=== PATIENT | male | born 2000 | race Caucasian/White ===

== ENCOUNTER 2023-01-14 10:34 | Inpatient (IN) | payer BC, OTHER ==
[~2023-01-14 10:34] MED LIST: Iopamidol-370 76% 500 ML MDV (1 ML CHARGE) ONE
[2023-01-14] MEDS ORDERED: fentaNYL 50 mcg/mL 1 mL Vial ONE (10:39)
[2023-01-14] MEDS ORDERED: Propofol 1,000 MG/100 ML VIAL IV ONE ×2 (10:40→14:20)
[2023-01-14 10:53] LABS: Actual Bicarbonate (HCO3a) 19.9 mEq/L (22-28); Analyzer IN Cardio ER; Base Excess (BEa) -6.2 mEq/L (-2.0 to +3.0); CO2 Tension 41.9 mmHg (35.0-45.0); Calcium, Ionized (arterial) 1.05 mmol/L (1.12-1.30); Carboxyhemoglobin (COHb) 0.5 gm% (0.0-3.0); Hematocrit-ABG 35 % (42.0-52.0); pH, Arterial 7.295 (7.35-7.45)
[2023-01-14 10:56] LABS: Hematocrit 42.2 % (42.0-52.0); Mean Corpuscular HGB CONC 33.2 g/dL (32.0-36.0); Mean Corpuscular Hemoglobin 31.3 pg (27.0-31.0); Mean Corpuscular Volume 94.2 fl (78.0-98.0); Platelet Count 106 10x3/uL (130-400); Red Blood Cell (RBC) Count 4.48 mill/uL (4.70-6.10); White Blood Cell (WBC) Count 0.6 10x3/uL (4.8-10.8)
[2023-01-14 10:56] LABS: O2 Tension (PaO2), arterial 53.4 mmHg (80.0-100.0); Potassium - ABG Lab 2.55 mmol/L (3.70-5.30)
[2023-01-14 11:23] LABS: Manual Diff?? YES
[2023-01-14 11:24] LABS: ALT (SGPT) 20 U/L (8-55); AST (SGOT) 29 U/L (5-34); Alkaline Phosphatase 71 U/L (40-110); Anion Gap 15 mmol/L (10-20); BUN (Urea Nitrogen) 22 mg/dL (8.9-20.6); Bilirubin, Total 0.2 mg/dL (0.2-1.2); Calc. Creatinine Clearance 0 mL/min (70-130); Calcium 8.2 mg/dL (7.8-10.44); Carbon Dioxide 20 mmol/L (22-29); Chloride 109 mmol/L (98-107); Estimated GFR 132; Globulin 1.9 g/dL (2.4-3.5); Glucose 78 mg/dL (70-105); Potassium 3.4 mmol/L (3.5-5.1); Protein, Total 5.9 g/dL (6.0-8.3); Sodium 141 mmol/L (136-145)
[2023-01-14 11:26] LABS: Bilirubin Negative (Negative); Blood, Urine Negative (Negative); CAUTI Indications for Culture Dysuria,urgency,freq; Clarity Turbid (Clear); Glucose, Urine (Dipstick) 70 mg/dL (Negative); Ketone, Urine Negative (Negative); Leukocyte Negative Leu/uL (Negative); Nitrite Negative (Negative); Protein, Urine (Dipstick) 70 mg/dL (Neg-Trace); RBC/HPF None Seen HPF (0-3); Specific Gravity, Urine 1.013 (1.002-1.036); Squamous Epithelial None Seen HPF (0-3); Urobilinogen Normal mg/dL (Less than 2); pH, Urine 5.5 (5.0-9.0)
[2023-01-14 11:28] LABS: Bacteria/HPF 1+ HPF (None Seen); Urine Culture Reflex No No
[2023-01-14 11:30] LABS: Delete Auto Diff?? YES
[2023-01-14 11:32] LABS: INR-International Normal Ratio 1.4; Prothrombin Time 18.1 sec (12.0-14.7)
[2023-01-14 11:33] LABS: PTT 28.3 sec (22.9-36.1)
[2023-01-14 11:56] LABS: Band 12 % (5-11); Lymphocytes 48 % (21-51); Monocytes 4 % (0-10); Neutrophil 32 % (42-75); Platelet Adequacy Comment Appears Decreased; Polychromasia SLIGHT = 2-3 cells (100X) (0-2/hpf); Reactive Lymphocytes 4 % (0-10)
[2023-01-14] MEDS ORDERED: Cefepime 1 GM VIAL ONE (12:26)
[2023-01-14] MEDS ORDERED: Vancomycin 1 GM/200 ML (FROZEN) BAG ONE (12:26)
[2023-01-14 13:03] LABS: Hemoglobin 13.8 g/dL (14.0-18.0); Mean Corpuscular HGB CONC 33.7 g/dL (32.0-36.0); Mean Corpuscular Hemoglobin 31.3 pg (27.0-31.0); Mean Platelet Volume 10.7 fL (7.4-10.4); Platelet Count 97 10x3/uL (130-400); Red Blood Cell (RBC) Count 4.41 mill/uL (4.70-6.10); White Blood Cell (WBC) Count 0.3 10x3/uL (4.8-10.8)
[2023-01-14 13:12] LABS: Delete Auto Diff?? YES; Manual Diff?? YES
[2023-01-14 13:22] LABS: Actual Bicarbonate (HCO3a) 19.8 mEq/L (22-28); Analyzer IN Cardio ER; Base Excess (BEa) -6.7 mEq/L (-2.0 to +3.0); CO2 Tension 43.3 mmHg (35.0-45.0); Calcium, Ionized (arterial) 1.15 mmol/L (1.12-1.30); Hematocrit-ABG 39 % (42.0-52.0); Hemoglobin (Hb) 13.4 g/dL (14.0-18.0); O2 Tension (PaO2), arterial 169.1 mmHg (80.0-100.0); Potassium - ABG Lab 3.57 mmol/L (3.70-5.30); pH, Arterial 7.279 (7.35-7.45)
[2023-01-14 13:39] LABS: Band 21 % (5-11); CellaVision Operator ID LAB.KB; Large Platelets 12.3 % (0-5); Lymphocytes 58 % (21-51); Monocytes 7 % (0-10); Neutrophil 12 % (42-75); Ovalocytes SLIGHT = 2-5 cells HPF (0-1); Platelet Adequacy Comment Platelets Decreased; Polychromasia SLIGHT = 2-3 cells HPF (0-2); Reactive Lymphocytes 2 % (0-10); Smudge Cells 8.8 %; Total Cell Count 57
[2023-01-14] MEDS ORDERED: Acetaminophen 325 MG/10.15 ML UDCUP PO PRN (14:15)
[2023-01-14] MEDS ORDERED: Acetaminophen 650 MG Suppository PR PRN ×2 (14:15→14:17)
[2023-01-14] MEDS ORDERED: Electrolyte Replacement Protocol 1 EACH IVPB SCH (14:15)
[2023-01-14] MEDS ORDERED: Piperacillin/Tazobactam 3.375 GM in Sodium Chloride 0.9% 100 ML IVPB SCH ×4 (14:15→23:59)
[2023-01-14] MEDS ORDERED: Electrolyte Replacement Protocol 1 EACH IVPB ONE (14:17)
[2023-01-14] MEDS ORDERED: Ondansetron ODT 4 MG TAB PO PRN (14:20)
[2023-01-14] MEDS ORDERED: Ondansetron PF 4 MG/2 ML Vial IVP PRN (14:20)
[2023-01-14] MEDS ORDERED: Propofol 1,000 MG/100 ML VIAL IV PRN (14:30)
[2023-01-14] MEDS ORDERED: Fentanyl BOLUS 250 ML IVPB PRN (14:30)
[2023-01-14] MEDS ORDERED: Morphine 2 MG/ML VIAL SLOW IVP PRN (14:30)
[2023-01-14] MEDS ORDERED: Propofol BOLUS 1,000 MG/100 ML VIAL IV PRN (14:30)
[2023-01-14] MEDS ORDERED: DISCONTINUE PREVIOUS NARCOTIC PAIN MEDICATIONS AND BENZODIAZEPINES FS SCH (14:30)
[2023-01-14] MEDS ORDERED: Ventilator Sedation Protocol 1 EACH FS SCH (14:30)
[2023-01-14] MEDS ORDERED: FLU VACC QS2023-24(6MOS UP)/PF 60 MCG/0.5 ML SYRINGE IM ONE (15:45)
[2023-01-14 16:39] LABS: Lactic Acid 3.6 mmol/L (0.5-2.2)
[2023-01-14 16:50] LABS: Magnesium 1.9 mg/dL (1.6-2.6)
[2023-01-14 16:57] LABS: Troponin I 0.327 ng/mL (< 0.028)
[2023-01-14] MEDS ORDERED: Sodium Chloride 0.9% 1,000 ML IV SCH (17:00)
[2023-01-14] MEDS: D5 LR w/20 mEq KCL 1,000 ML IV SCH (17:06)
[2023-01-14] MEDS: Ipratropium/Albuterol 3 ML NEB NEB SCH ×2 (18:24→23:40)
[2023-01-14] MEDS ORDERED: Magnesium 2 GM/50 ML(in water) 2 GM in Premix 1 BAG IVPB SCH (19:15)
[2023-01-14] MEDS ORDERED: Vancomycin HCl 750 MG in Sodium Chloride 0.9% 250 ML 250 ML IVPB SCH (20:00)
[2023-01-14] MEDS ORDERED: Sodium Chloride 0.9% 100 ML ONE (20:22)
[2023-01-14] MEDS: Lorazepam 2 MG/ML VIAL SLOW IVP PRN (20:24)
[2023-01-14] MEDS: Heparin 5,000 UNITS/ML VIAL SC SCH (20:24)
[2023-01-14] MEDS: Baclofen 10 MG TAB PER TUBE SCH (20:33)
[2023-01-14] MEDS: Divalproex Sodium 125 mg Sprinkle Capsule PER TUBE SCH (20:33)
[2023-01-14] MEDS: Famotidine/PF 20 mg/2ml Vial SLOW IVP SCH (20:34)
[2023-01-14] MEDS: methylPREDNISolone Sod Succ 40 MG VIAL IVP SCH (20:35)
[2023-01-14] MEDS: LEVOCARNITINE 1 GM/10 ML PER TUBE SCH (20:36)
[2023-01-14] MEDS ORDERED: Vancomycin 1 GM in Premix 1 BAG IVPB SCH (21:00)
[2023-01-14] MEDS ORDERED: Famotidine/PF 20 mg/2ml Vial SLOW IVP SCH (21:00)
[2023-01-14] MEDS: Vancomycin HCl 750 MG in Sodium Chloride 0.9% 250 ML 250 ML IVPB SCH (21:04)
[2023-01-14] MEDS ORDERED: Piperacillin/Tazobactam 3.375 GM VIAL ONE (23:39)
[2023-01-14] MEDS: Piperacillin/Tazobactam 3.375 GM in Sodium Chloride 0.9% 100 ML IVPB SCH (23:44)
[2023-01-15] MEDS: D5 LR w/20 mEq KCL 1,000 ML IV SCH ×3 (00:05→11:06)
[2023-01-15 04:00] LABS: Hematocrit 36.8 % (42.0-52.0); Hemoglobin 12.5 g/dL (14.0-18.0); Mean Corpuscular Hemoglobin 31.2 pg (27.0-31.0); Mean Corpuscular Volume 91.8 fl (78.0-98.0); Mean Platelet Volume 11.2 fL (7.4-10.4); RBC Distribution Width 13.2 % (11.5-14.5); Red Blood Cell (RBC) Count 4.01 mill/uL (4.70-6.10); White Blood Cell (WBC) Count 3.7 10x3/uL (4.8-10.8)
[2023-01-15 04:39] LABS: ALT (SGPT) 21 U/L (8-55); AST (SGOT) 27 U/L (5-34); Albumin 3.2 g/dL (3.5-5.0); Alkaline Phosphatase 43 U/L (40-110); Anion Gap 14 mmol/L (10-20); BUN (Urea Nitrogen) 11 mg/dL (8.9-20.6); Bilirubin, Total 0.4 mg/dL (0.2-1.2); Calc. Creatinine Clearance 126 mL/min (70-130); Calcium 7.9 mg/dL (7.8-10.44); Carbon Dioxide 17 mmol/L (22-29); Chloride 111 mmol/L (98-107); Estimated GFR 143; Globulin 1.7 g/dL (2.4-3.5); Glucose 173 mg/dL (70-105); Magnesium 2.4 mg/dL (1.6-2.6); Phosphorus 2.3 mg/dL (2.3-4.7); Potassium 3.2 mmol/L (3.5-5.1); Protein, Total 4.9 g/dL (6.0-8.3); Sodium 139 mmol/L (136-145)
[2023-01-15 05:07] LABS: Delete Auto Diff?? YES; Manual Diff?? YES; Platelet Count 87 10x3/uL (130-400)
[2023-01-15] MEDS: Vancomycin HCl 750 MG in Sodium Chloride 0.9% 250 ML 250 ML IVPB SCH ×2 (05:07→13:40)
[2023-01-15 06:34] LABS: Band 36 % (5-11); Burr Cells SLIGHT = 2-5 cells HPF (0-1); CellaVision Operator ID LAB.JMM; Large Platelets 3.4 % (0-5); Lymphocytes 20 % (21-51); Metamyelocyte 14 % (0-0); Monocytes 9 % (0-10); Myelocyte 6 % (0-0); Neutrophil 15 % (42-75); Platelet Adequacy Comment Platelets Decreased; Smudge Cells 12.5 %; Total Cell Count 88
[2023-01-15] MEDS: Ipratropium/Albuterol 3 ML NEB NEB SCH ×3 (06:34→19:21)
[2023-01-15 06:50] LABS: Actual Bicarbonate (HCO3a) 22.4 mEq/L (22-28); Base Excess (BEa) -0.1 mEq/L (-2.0 to +3.0); CO2 Tension 30.4 mmHg (35.0-45.0); Calcium, Ionized (arterial) 1.14 mmol/L (1.12-1.30); Carboxyhemoglobin (COHb) 0.5 gm% (0.0-3.0); Hematocrit-ABG 37 % (42.0-52.0); Hemoglobin (Hb) 12.6 g/dL (14.0-18.0); O2 Tension (PaO2), arterial 90.5 mmHg (80.0-100.0); Potassium - ABG Lab 3.46 mmol/L (3.70-5.30); pH, Arterial 7.486 (7.35-7.45)
[2023-01-15 06:54] LABS: Puncture Site RRA
[2023-01-15] MEDS: Piperacillin/Tazobactam 3.375 GM in Sodium Chloride 0.9% 100 ML IVPB SCH ×2 (07:52→15:23)
[2023-01-15] MEDS: Potassium Chloride 20 MEQ in Premix 1 BAG IVPB SCH ×2 (07:52→10:04)
[2023-01-15] MEDS: Famotidine/PF 20 mg/2ml Vial SLOW IVP SCH ×2 (08:10→20:50)
[2023-01-15] MEDS: methylPREDNISolone Sod Succ 40 MG VIAL IVP SCH ×2 (08:10→20:50)
[2023-01-15] MEDS: Baclofen 10 MG TAB PER TUBE SCH ×2 (08:11→20:50)
[2023-01-15] MEDS: Divalproex Sodium 125 mg Sprinkle Capsule PER TUBE SCH ×2 (08:19→21:02)
[2023-01-15] MEDS: LEVOCARNITINE 1 GM/10 ML PER TUBE SCH ×2 (08:19→20:51)
[2023-01-15] MEDS: Heparin 5,000 UNITS/ML VIAL SC SCH (10:06)
[2023-01-15] MEDS ORDERED: Dexmedetomidine 400 MCG, Admixture Fee 1 EACH in Sodium Chloride 0.9% 96 ML IVPB SCH (12:00)
[2023-01-15] MEDS ORDERED: Sodium Chloride 0.9% 1,000 ML IV SCH ×2 (13:15→14:30)
[2023-01-15 13:42] LABS: Vancomycin, Trough 7.6 ug/mL
[2023-01-15] MEDS: Albumin 25% 25 GM/100 ML BOT IVPB SCH ×2 (14:29→20:49)
[2023-01-15] MEDS: Sodium Chloride 0.45% 1,000 ML IV SCH ×2 (14:53→23:18)
[2023-01-15] MEDS ORDERED: NOREPINEPHRINE 8 MG/250 ML-D5W 250 ML ONE (15:07)
[2023-01-15] MEDS ORDERED: NOREPINEPHRINE 8 MG/250 ML-D5W 250 ML IVPB SCH (15:15)
[2023-01-15] MEDS: Fentanyl CADD 100 ML IV SCH (16:36)
[2023-01-15] MEDS: Lorazepam 2 MG/ML VIAL SLOW IVP PRN (21:39)
[2023-01-15] MEDS: Vancomycin 1 GM in Premix 1 BAG IVPB SCH (22:03)
[2023-01-16] MEDS: Piperacillin/Tazobactam 3.375 GM in Sodium Chloride 0.9% 100 ML IVPB SCH ×4 (00:30→23:48)
[2023-01-16] MEDS: Lorazepam 2 MG/ML VIAL SLOW IVP PRN (01:49)
[2023-01-16] MEDS: Albumin 25% 25 GM/100 ML BOT IVPB SCH ×2 (01:53→08:28)
[2023-01-16] MEDS: Ipratropium/Albuterol 3 ML NEB NEB SCH ×4 (02:08→19:04)
[2023-01-16] MEDS: Sodium Chloride 0.45% 1,000 ML IV SCH ×5 (03:34→16:30)
[2023-01-16 04:19] LABS: Mean Corpuscular HGB CONC 33.8 g/dL (32.0-36.0); Mean Corpuscular Hemoglobin 31.5 pg (27.0-31.0); Mean Corpuscular Volume 93.2 fl (78.0-98.0); Mean Platelet Volume 11.5 fL (7.4-10.4); RBC Distribution Width 13.7 % (11.5-14.5); Red Blood Cell (RBC) Count 2.95 mill/uL (4.70-6.10); White Blood Cell (WBC) Count 4.6 10x3/uL (4.8-10.8)
[2023-01-16 04:35] LABS: Platelet Count 64 10x3/uL (130-400)
[2023-01-16 04:36] LABS: Delete Auto Diff?? YES; Manual Diff?? YES
[2023-01-16 04:38] LABS: Hematocrit 27.5 % (42.0-52.0); Hemoglobin 9.3 g/dL (14.0-18.0)
[2023-01-16 04:48] LABS: ALT (SGPT) 16 U/L (8-55); AST (SGOT) 19 U/L (5-34); Albumin 3.9 g/dL (3.5-5.0); Alkaline Phosphatase 26 U/L (40-110); Anion Gap 11 mmol/L (10-20); BUN (Urea Nitrogen) 8 mg/dL (8.9-20.6); Bilirubin, Total 0.4 mg/dL (0.2-1.2); Calc. Creatinine Clearance 140 mL/min (70-130); Calcium 7.9 mg/dL (7.8-10.44); Carbon Dioxide 19 mmol/L (22-29); Chloride 113 mmol/L (98-107); Estimated GFR 148; Globulin 1.3 g/dL (2.4-3.5); Glucose 144 mg/dL (70-105); Potassium 3.3 mmol/L (3.5-5.1); Protein, Total 5.2 g/dL (6.0-8.3); Sodium 140 mmol/L (136-145)
[2023-01-16 05:14] LABS: Band 42 % (5-11); CellaVision Operator ID lab.abc; Large Platelets 1.8 % (0-5); Lymphocytes 14 % (21-51); Metamyelocyte 3 % (0-0); Monocytes 5 % (0-10); Neutrophil 37 % (42-75); Platelet Adequacy Comment Platelets Decreased; RBC Morphology Within Normal Limits; Smudge Cells 6.4 %; Total Cell Count 109; Vacuoles SLIGHT
[2023-01-16] MEDS: Vancomycin 1 GM in Premix 1 BAG IVPB SCH ×3 (05:53→22:09)
[2023-01-16] MEDS: Potassium Chloride 20 MEQ in Premix 1 BAG IVPB SCH ×2 (08:28→10:31)
[2023-01-16] MEDS: LEVOCARNITINE 1 GM/10 ML PER TUBE SCH ×2 (08:29→20:42)
[2023-01-16] MEDS: Baclofen 10 MG TAB PER TUBE SCH ×2 (08:29→20:42)
[2023-01-16] MEDS: Famotidine/PF 20 mg/2ml Vial SLOW IVP SCH (08:29)
[2023-01-16] MEDS: Divalproex Sodium 125 mg Sprinkle Capsule PER TUBE SCH ×2 (08:29→20:41)
[2023-01-16] MEDS ORDERED: methylPREDNISolone Sod Succ 40 MG VIAL IVP SCH (08:45)
[2023-01-16] MEDS: methylPREDNISolone Sod Succ 40 MG VIAL IVP SCH ×2 (09:08→20:41)
[2023-01-17] MEDS: Ipratropium/Albuterol 3 ML NEB NEB SCH ×5 (01:06→23:45)
[2023-01-17] MEDS: Sodium Chloride 0.45% 1,000 ML IV SCH ×3 (03:44→21:27)
[2023-01-17 04:42] LABS: Hematocrit 31.9 % (42.0-52.0); Hemoglobin 10.6 g/dL (14.0-18.0); Mean Corpuscular HGB CONC 33.2 g/dL (32.0-36.0); Mean Corpuscular Hemoglobin 31.6 pg (27.0-31.0); Mean Corpuscular Volume 95.2 fl (78.0-98.0); Mean Platelet Volume 11.8 fL (7.4-10.4); RBC Distribution Width 13.9 % (11.5-14.5); Red Blood Cell (RBC) Count 3.35 mill/uL (4.70-6.10); White Blood Cell (WBC) Count 7.5 10x3/uL (4.8-10.8)
[2023-01-17 05:08] LABS: Delete Auto Diff?? YES; Manual Diff?? YES; Platelet Count 71 10x3/uL (130-400)
[2023-01-17 05:10] LABS: ALT (SGPT) 22 U/L (8-55); AST (SGOT) 32 U/L (5-34); Albumin 3.6 g/dL (3.5-5.0); Alkaline Phosphatase 39 U/L (40-110); Anion Gap 10 mmol/L (10-20); BUN (Urea Nitrogen) 12 mg/dL (8.9-20.6); Bilirubin, Total 0.4 mg/dL (0.2-1.2); Calc. Creatinine Clearance 119 mL/min (70-130); Calcium 8.3 mg/dL (7.8-10.44); Carbon Dioxide 20 mmol/L (22-29); Chloride 113 mmol/L (98-107); Estimated GFR 139; Globulin 1.4 g/dL (2.4-3.5); Glucose 120 mg/dL (70-105); Potassium 3.8 mmol/L (3.5-5.1); Sodium 139 mmol/L (136-145)
[2023-01-17] MEDS: Vancomycin 1 GM in Premix 1 BAG IVPB SCH ×3 (05:43→23:23)
[2023-01-17 06:05] LABS: Anisocytosis SLIGHT = 6-15 cells HPF (0-5); Band 42 % (5-11); CellaVision Operator ID LAB.JMM; Lymphocytes 4 % (21-51); Macrocytosis SLIGHT = 6-15 cells HPF (0-5); Metamyelocyte 3 % (0-0); Monocytes 3 % (0-10); Neutrophil 48 % (42-75); Platelet Adequacy Comment Platelets Decreased; Total Cell Count 102
[2023-01-17] MEDS ORDERED: Electrolyte Replacement Protocol FS PRN (09:00)
[2023-01-17] MEDS ORDERED: Furosemide 20 MG/2 ML VIAL SLOW IVP SCH (09:00)
[2023-01-17] MEDS ORDERED: Potassium Bicarbonate/Cit Ac 20 MEQ TAB PER TUBE SCH (09:00)
[2023-01-17] MEDS: Piperacillin/Tazobactam 3.375 GM in Sodium Chloride 0.9% 100 ML IVPB SCH ×3 (09:08→23:53)
[2023-01-17] MEDS: Divalproex Sodium 125 mg Sprinkle Capsule PER TUBE SCH ×2 (09:09→20:24)
[2023-01-17] MEDS: methylPREDNISolone Sod Succ 40 MG VIAL IVP SCH ×2 (09:10→20:24)
[2023-01-17] MEDS: Pantoprazole 40 MG VIAL IVP SCH (09:10)
[2023-01-17] MEDS: LEVOCARNITINE 1 GM/10 ML PER TUBE SCH ×2 (09:10→20:27)
[2023-01-17] MEDS: Baclofen 10 MG TAB PER TUBE SCH ×2 (09:12→20:24)
[2023-01-17] MEDS: Fentanyl CADD 100 ML IV SCH (16:45)
[2023-01-17] MEDS: Lorazepam 2 MG/ML VIAL SLOW IVP PRN (20:23)
[2023-01-17 22:15] LABS: Vancomycin, Trough 23.7 ug/mL
[2023-01-17] MEDS: Vancomycin HCl 750 MG in Sodium Chloride 0.9% 250 ML 250 ML IVPB SCH (23:53)
[2023-01-18 04:17] LABS: Hematocrit 34.5 % (42.0-52.0); Hemoglobin 11.2 g/dL (14.0-18.0); Mean Corpuscular HGB CONC 32.5 g/dL (32.0-36.0); Mean Corpuscular Hemoglobin 31.2 pg (27.0-31.0); Mean Corpuscular Volume 96.1 fl (78.0-98.0); Mean Platelet Volume 11.4 fL (7.4-10.4); Platelet Count 93 10x3/uL (130-400); RBC Distribution Width 14.1 % (11.5-14.5); Red Blood Cell (RBC) Count 3.59 mill/uL (4.70-6.10); White Blood Cell (WBC) Count 8.7 10x3/uL (4.8-10.8)
[2023-01-18 04:22] LABS: Delete Auto Diff?? YES; Manual Diff?? YES
[2023-01-18 04:39] LABS: Phosphorus 2.4 mg/dL (2.3-4.7)
[2023-01-18 04:40] LABS: ALT (SGPT) 25 U/L (8-55); AST (SGOT) 26 U/L (5-34); Albumin 3.6 g/dL (3.5-5.0); Alkaline Phosphatase 37 U/L (40-110); Anion Gap 11 mmol/L (10-20); BUN (Urea Nitrogen) 15 mg/dL (8.9-20.6); Bilirubin, Total 0.3 mg/dL (0.2-1.2); Calc. Creatinine Clearance 106 mL/min (70-130); Calcium 8.5 mg/dL (7.8-10.44); Carbon Dioxide 24 mmol/L (22-29); Chloride 108 mmol/L (98-107); Estimated GFR 132; Globulin 1.4 g/dL (2.4-3.5); Glucose 139 mg/dL (70-105); Potassium 3.4 mmol/L (3.5-5.1); Sodium 140 mmol/L (136-145)
[2023-01-18 04:47] LABS: Band 12 % (5-11); CellaVision Operator ID lab.sh2; Hypochromia SLIGHT = 6-15 cells HPF (0-5); Lymphocytes 5 % (21-51); Monocytes 7 % (0-10); Neutrophil 77 % (42-75); Platelet Adequacy Comment Platelets Decreased; Polychromasia SLIGHT = 2-3 cells HPF (0-2); Total Cell Count 102; Vacuoles SLIGHT
[2023-01-18] MEDS: Sodium Chloride 0.45% 1,000 ML IV SCH ×2 (05:42→15:36)
[2023-01-18 06:49] LABS: Actual Bicarbonate (HCO3a) 23.3 mEq/L (22-28); Base Excess (BEa) -1.7 mEq/L (-2.0 to +3.0); CO2 Tension 40.7 mmHg (35.0-45.0); Calcium, Ionized (arterial) 1.23 mmol/L (1.12-1.30); Carboxyhemoglobin (COHb) 0.5 gm% (0.0-3.0); Hematocrit-ABG 34 % (42.0-52.0); Hemoglobin (Hb) 11.4 g/dL (14.0-18.0); O2 Tension (PaO2), arterial 75.1 mmHg (80.0-100.0); pH, Arterial 7.376 (7.35-7.45)
[2023-01-18 07:10] LABS: ALV-art Gradient 87.925 mmHg (0-20); Puncture Site RRA
[2023-01-18] MEDS: Vancomycin HCl 750 MG in Sodium Chloride 0.9% 250 ML 250 ML IVPB SCH ×2 (07:31→15:36)
[2023-01-18] MEDS: Ipratropium/Albuterol 3 ML NEB NEB SCH ×3 (07:32→19:11)
[2023-01-18] MEDS ORDERED: Magnesium 2 GM/50 ML(in water) 2 GM in Premix 1 BAG IVPB SCH (08:00)
[2023-01-18] MEDS ORDERED: Potassium Bicarbonate/Cit Ac 20 MEQ TAB PER TUBE SCH (08:00)
[2023-01-18] MEDS: Piperacillin/Tazobactam 3.375 GM in Sodium Chloride 0.9% 100 ML IVPB SCH ×2 (08:17→15:36)
[2023-01-18] MEDS: Baclofen 10 MG TAB PER TUBE SCH ×2 (08:18→20:44)
[2023-01-18] MEDS: LEVOCARNITINE 1 GM/10 ML PER TUBE SCH ×2 (08:38→20:44)
[2023-01-18] MEDS: methylPREDNISolone Sod Succ 40 MG VIAL IVP SCH ×2 (08:38→20:45)
[2023-01-18] MEDS: Pantoprazole 40 MG VIAL IVP SCH (08:38)
[2023-01-18] MEDS: Divalproex Sodium 125 mg Sprinkle Capsule PER TUBE SCH ×2 (08:52→20:44)
[2023-01-18 23:18] LABS: Vancomycin, Trough 20.5 ug/mL
[2023-01-19] MEDS: Piperacillin/Tazobactam 3.375 GM in Sodium Chloride 0.9% 100 ML IVPB SCH ×4 (00:02→23:59)
[2023-01-19] MEDS: Vancomycin HCl 750 MG in Sodium Chloride 0.9% 250 ML 250 ML IVPB SCH (00:03)
[2023-01-19] MEDS: Ipratropium/Albuterol 3 ML NEB NEB SCH ×4 (00:43→18:25)
[2023-01-19 04:38] LABS: #Monocytes 0.7 thou/uL (0.11-0.59); #Neutrophils 4.7 thou/uL (1.40-6.50); %Basophils 0.2 % (0.0-1.0); %Eosinophils 0.2 % (0.0-10.0); %Neutrophils 77.6 % (42.0-75.0); Hematocrit 34.5 % (42.0-52.0); Hemoglobin 11.4 g/dL (14.0-18.0); Mean Corpuscular Hemoglobin 31.2 pg (27.0-31.0); Mean Corpuscular Volume 94.5 fl (78.0-98.0); Mean Platelet Volume 11.1 fL (7.4-10.4); Platelet Count 110 10x3/uL (130-400); RBC Distribution Width 14.1 % (11.5-14.5); Red Blood Cell (RBC) Count 3.65 mill/uL (4.70-6.10); White Blood Cell (WBC) Count 6.1 10x3/uL (4.8-10.8)
[2023-01-19 05:01] LABS: ALT (SGPT) 22 U/L (8-55); AST (SGOT) 22 U/L (5-34); Albumin 3.4 g/dL (3.5-5.0); Alkaline Phosphatase 36 U/L (40-110); Anion Gap 11 mmol/L (10-20); BUN (Urea Nitrogen) 16 mg/dL (8.9-20.6); Bilirubin, Total 0.3 mg/dL (0.2-1.2); Calc. Creatinine Clearance 108 mL/min (70-130); Calcium 8.4 mg/dL (7.8-10.44); Carbon Dioxide 25 mmol/L (22-29); Chloride 110 mmol/L (98-107); Estimated GFR 134; Globulin 1.5 g/dL (2.4-3.5); Glucose 94 mg/dL (70-105); Potassium 4.3 mmol/L (3.5-5.1); Protein, Total 4.9 g/dL (6.0-8.3); Sodium 142 mmol/L (136-145)
[2023-01-19] MEDS: Sodium Chloride 0.45% 1,000 ML IV SCH ×2 (06:21→09:25)
[2023-01-19] MEDS ORDERED: Vancomycin HCl 500 MG in Sodium Chloride 0.9% 100 ML IVPB SCH (08:00)
[2023-01-19] MEDS: Pantoprazole 40 MG VIAL IVP SCH (09:13)
[2023-01-19] MEDS: methylPREDNISolone Sod Succ 40 MG VIAL IVP SCH (09:13)
[2023-01-19] MEDS: Baclofen 10 MG TAB PER TUBE SCH ×2 (09:26→21:09)
[2023-01-19] MEDS: Divalproex Sodium 125 mg Sprinkle Capsule PER TUBE SCH ×2 (09:26→21:09)
[2023-01-19] MEDS: LEVOCARNITINE 1 GM/10 ML PER TUBE SCH ×2 (09:29→21:09)
[2023-01-19] MEDS ORDERED: Furosemide 20 MG/2 ML VIAL SLOW IVP SCH (10:00)
[2023-01-20] MEDS: Ipratropium/Albuterol 3 ML NEB NEB SCH ×4 (01:25→18:52)
[2023-01-20] MEDS: Piperacillin/Tazobactam 3.375 GM in Sodium Chloride 0.9% 100 ML IVPB SCH ×2 (10:50→16:48)
[2023-01-20] MEDS: Pantoprazole 40 MG VIAL IVP SCH (10:51)
[2023-01-20] MEDS: Divalproex Sodium 125 mg Sprinkle Capsule PER TUBE SCH ×2 (10:52→21:47)
[2023-01-20] MEDS: Baclofen 10 MG TAB PER TUBE SCH ×2 (10:52→21:47)
[2023-01-20] MEDS: LEVOCARNITINE 1 GM/10 ML PER TUBE SCH ×2 (10:53→21:47)
[2023-01-21] MEDS: Piperacillin/Tazobactam 3.375 GM in Sodium Chloride 0.9% 100 ML IVPB SCH ×4 (00:46→23:43)
[2023-01-21 06:32] LABS: #Basophils 0.1 thou/uL (0.0-0.2); #Eosinphils 0.1 thou/uL (0.0-0.7); #Monocytes 1.6 thou/uL (0.11-0.59); %Basophils 0.6 % (0.0-1.0); %Eosinophils 1.4 % (0.0-10.0); %Lymphocytes 17.2 % (21.0-51.0); %Monocytes 18.2 % (0.0-10.0); Hematocrit 31.6 % (42.0-52.0); Hemoglobin 10.7 g/dL (14.0-18.0); Mean Corpuscular HGB CONC 33.9 g/dL (32.0-36.0); Mean Corpuscular Hemoglobin 31.3 pg (27.0-31.0); Mean Corpuscular Volume 92.4 fl (78.0-98.0); Mean Platelet Volume 9.8 fL (7.4-10.4); Platelet Count 135 10x3/uL (130-400); Red Blood Cell (RBC) Count 3.42 mill/uL (4.70-6.10); White Blood Cell (WBC) Count 8.6 10x3/uL (4.8-10.8)
[2023-01-21 06:53] LABS: Anion Gap 11 mmol/L (10-20); BUN (Urea Nitrogen) 16 mg/dL (8.9-20.6); Calc. Creatinine Clearance 106 mL/min (70-130); Calcium 8.6 mg/dL (7.8-10.44); Carbon Dioxide 29 mmol/L (22-29); Chloride 109 mmol/L (98-107); Estimated GFR 129; Glucose 88 mg/dL (70-105); Potassium 3.5 mmol/L (3.5-5.1); Sodium 145 mmol/L (136-145)
[2023-01-21] MEDS ORDERED: Ipratropium/Albuterol 3 ML NEB NEB SCH (07:45)
[2023-01-21] MEDS: Pantoprazole 40 MG VIAL IVP SCH (08:58)
[2023-01-21] MEDS: Divalproex Sodium 125 mg Sprinkle Capsule PER TUBE SCH ×2 (08:58→20:04)
[2023-01-21] MEDS: Baclofen 10 MG TAB PER TUBE SCH ×2 (08:58→20:04)
[2023-01-21] MEDS: LEVOCARNITINE 1 GM/10 ML PER TUBE SCH ×2 (08:59→20:05)
[2023-01-21] MEDS ORDERED: Potassium Bicarbonate/Cit Ac 20 MEQ TAB PER TUBE SCH (09:00)
[2023-01-21] MEDS: Ipratropium/Albuterol 3 ML NEB NEB SCH ×2 (13:29→18:42)
[2023-01-22 05:47] LABS: #Basophils 0.1 thou/uL (0.0-0.2); #Eosinphils 0.2 thou/uL (0.0-0.7); #Monocytes 1.1 thou/uL (0.11-0.59); #Neutrophils 5.8 thou/uL (1.40-6.50); %Basophils 0.6 % (0.0-1.0); %Eosinophils 1.9 % (0.0-10.0); %Lymphocytes 17.5 % (21.0-51.0); %Monocytes 12.2 % (0.0-10.0); %Neutrophils 63.3 % (42.0-75.0); Hematocrit 34.2 % (42.0-52.0); Hemoglobin 10.9 g/dL (14.0-18.0); Mean Corpuscular HGB CONC 31.9 g/dL (32.0-36.0); Mean Corpuscular Hemoglobin 31.4 pg (27.0-31.0); Mean Platelet Volume 10.2 fL (7.4-10.4); Platelet Count 164 10x3/uL (130-400); RBC Distribution Width 14.2 % (11.5-14.5); Red Blood Cell (RBC) Count 3.47 mill/uL (4.70-6.10); White Blood Cell (WBC) Count 9.2 10x3/uL (4.8-10.8)
[2023-01-22 05:49] LABS: Mean Corpuscular Volume 98.6 fl (78.0-98.0)
[2023-01-22 06:13] LABS: Anion Gap 12 mmol/L (10-20); BUN (Urea Nitrogen) 15 mg/dL (8.9-20.6); Calc. Creatinine Clearance 115 mL/min (70-130); Calcium 8.7 mg/dL (7.8-10.44); Carbon Dioxide 23 mmol/L (22-29); Chloride 111 mmol/L (98-107); Estimated GFR 132; Glucose 74 mg/dL (70-105); Sodium 142 mmol/L (136-145)
[2023-01-22] MEDS: Ipratropium/Albuterol 3 ML NEB NEB SCH ×3 (06:48→19:06)
[2023-01-22] MEDS: Piperacillin/Tazobactam 3.375 GM in Sodium Chloride 0.9% 100 ML IVPB SCH (07:42)
[2023-01-22] MEDS: Divalproex Sodium 125 mg Sprinkle Capsule PER TUBE SCH ×2 (07:43→20:00)
[2023-01-22] MEDS: Baclofen 10 MG TAB PER TUBE SCH ×2 (07:43→20:00)
[2023-01-22] MEDS: Pantoprazole 40 MG VIAL IVP SCH (07:43)
[2023-01-22] MEDS: LEVOCARNITINE 1 GM/10 ML PER TUBE SCH ×2 (07:44→20:00)
[2023-01-22 09:37] VITALS: BMI 16.0
[2023-01-22] MEDS ORDERED: Scopolamine 1 mg/72 hour Patch TD SCH (14:15)
[2023-01-22 15:46] VITALS: BP 115/72
[2023-01-23] MEDS: Ipratropium/Albuterol 3 ML NEB NEB SCH ×2 (06:40→12:34)
[2023-01-23] MEDS: LEVOCARNITINE 1 GM/10 ML PER TUBE SCH (08:44)
[2023-01-23] MEDS: Baclofen 10 MG TAB PER TUBE SCH (08:44)
[2023-01-23] MEDS: Divalproex Sodium 125 mg Sprinkle Capsule PER TUBE SCH (08:44)
[2023-01-23] MEDS: Pantoprazole 40 MG VIAL IVP SCH (08:46)
[2023-01-23 14:11] VITALS: TEMP 98.2
[2023-01-24] MEDS ORDERED: Lansoprazole 15 MG/5 ML (BATCHED)UDCUP PER TUBE SCH (09:00)
== END 2023-01-23 15:00 | disposition home or self-care (01) | DRG 871 ==
LOC: ERS 10:34 → CCU 14:17 → IMCU/EMU 01-19 18:04
PROVIDERS: ADMIT Internal Medicine; ATTEND Hospitalist
PROC: 4A133R1 Monitoring of Arterial Saturation, Peripheral, Percutaneous Approach (ICD-10-PCS; principal; 2023-01-14)
PROC: 3E03329 Introduction of Other Anti-infective into Peripheral Vein, Percutaneous Approach (ICD-10-PCS; 2023-01-14)
PROC: 3E033XZ Introduction of Vasopressor into Peripheral Vein, Percutaneous Approach (ICD-10-PCS; 2023-01-15)
PROC: 30233J1 Transfusion of Nonautologous Serum Albumin into Peripheral Vein, Percutaneous Approach (ICD-10-PCS; 2023-01-15)
DX: A41.9 Sepsis, unspecified organism (principal); I21.A1 Myocardial infarction type 2; R65.21 Severe sepsis with septic shock; J69.0 Pneumonitis due to inhalation of food and vomit; Z51.5 Encounter for palliative care; J18.9 Pneumonia, unspecified organism; J96.01 Acute respiratory failure with hypoxia; J80 Acute respiratory distress syndrome; E87.20 Acidosis, unspecified; R64 Cachexia; Z68.1 Body mass index [BMI] 19.9 or less, adult; G80.9 Cerebral palsy, unspecified; G40.909 Epilepsy, unspecified, not intractable, without status epilepticus; Z98.890 Other specified postprocedural states; D72.819 Decreased white blood cell count, unspecified; E87.6 Hypokalemia; E83.42 Hypomagnesemia; R13.12 Dysphagia, oropharyngeal phase; Z74.01 Bed confinement status; Z79.899 Other long term (current) drug therapy
CPT/HCPCS: 36415; 36416; 36600; 51702; 71045; 71275; 80048; 80053; 80202; 81001; 82533; 82607; 82805; 83605; 83735; 84100; 84484; 85025; 85610; 85730; 86140; 87040; 87070; 87081; 87086; 87205; 93005; 94002; 94003; 94640; 94667; 94668; 96365; 96366; 96367; 96375; 99292; C9113; J0692; J1644; J1650; J1940; J2060; J2543; J2704; J2920; J3010; J3370; J3370-JW; J3475; J3480; J3490; J7050; J7620; P9047; Q9967; S0028

== ENCOUNTER 2023-05-11 20:29 | Emergency (ER) | payer BC, OTHER ==
[2023-05-11] MEDS ORDERED: LORazepam 2 MG/ML SYR.(CARPUJECT) ONE (20:37)
[2023-05-11] MEDS ORDERED: Ondansetron PF 4 MG/2 ML Vial ONE ×2 (21:15→22:22)
[2023-05-11 22:18] LABS: #Monocytes 0.7 thou/uL (0.11-0.59); #Neutrophils 5.4 thou/uL (1.40-6.50); %Basophils 0.4 % (0.0-1.0); %Eosinophils 0.1 % (0.0-10.0); %Lymphocytes 15.2 % (21.0-51.0); %Monocytes 9.7 % (0.0-10.0); %Neutrophils 74.2 % (42.0-75.0); Hematocrit 40.6 % (42.0-52.0); Hemoglobin 13.5 g/dL (14.0-18.0); Mean Corpuscular HGB CONC 33.3 g/dL (32.0-36.0); Mean Corpuscular Hemoglobin 31.2 pg (27.0-31.0); Mean Corpuscular Volume 93.8 fl (78.0-98.0); Platelet Count 160 10x3/uL (130-400); RBC Distribution Width 13.6 % (11.5-14.5); Red Blood Cell (RBC) Count 4.33 mill/uL (4.70-6.10); White Blood Cell (WBC) Count 7.2 10x3/uL (4.8-10.8)
[2023-05-11] MEDS ORDERED: levETIRAcetam 500 MG (5 mL) VIAL ONE (22:22)
[2023-05-11 22:54] LABS: ALT (SGPT) 13 U/L (8-55); AST (SGOT) 22 U/L (5-34); Albumin 4.4 g/dL (3.5-5.0); Alkaline Phosphatase 54 U/L (40-110); Anion Gap 13 mmol/L (10-20); BUN (Urea Nitrogen) 18 mg/dL (8.9-20.6); Bilirubin, Total 0.2 mg/dL (0.2-1.2); Calc. Creatinine Clearance 0 mL/min (70-130); Carbon Dioxide 23 mmol/L (22-29); Chloride 105 mmol/L (98-107); Estimated GFR 141; Globulin 2.9 g/dL (2.4-3.5); Glucose 114 mg/dL (70-105); Potassium 4.6 mmol/L (3.5-5.1); Protein, Total 7.3 g/dL (6.0-8.3); Sodium 136 mmol/L (136-145)
[2023-05-11] MEDS ORDERED: Sodium Chloride 0.9% 100 ML ONE (23:05)
[2023-05-11] MEDS ORDERED: Cefepime 2 GM VIAL ONE (23:05)
[2023-05-11] MEDS ORDERED: Acetaminophen 650 MG Suppository ONE (23:05)
[2023-05-11 23:47] LABS: Bacteria/HPF None Seen HPF (None Seen); Bilirubin Negative (Negative); Blood, Urine Negative (Negative); CAUTI Indications for Culture Alt mental st,lethar; Clarity Clear (Clear); Glucose, Urine (Dipstick) Normal (Negative); Ketone, Urine Trace mg/dL (Negative); Leukocyte Negative Leu/uL (Negative); Nitrite Negative (Negative); Protein, Urine (Dipstick) Negative (Neg-Trace); RBC/HPF 0-3 HPF (0-3); Specific Gravity, Urine 1.025 (1.002-1.036); Squamous Epithelial 0-3 HPF (0-3); Urobilinogen Normal mg/dL (Less than 2); WBC/HPF 0-3 HPF (0-3); pH, Urine 6.5 (5.0-9.0)
[2023-05-11 23:48] LABS: Urine Culture Reflex No No
[2023-05-12 00:21] LABS: SARS-CoV-2 NAA Rapid Test Not Detected (NotDetected)
[2023-05-12] MEDS ORDERED: Vancomycin 1 GM/200 ML (FROZEN) BAG ONE (00:50)
== END 2023-05-12 02:18 | disposition short-term general hospital (02) ==
LOC: ERS 20:29
DX: G40.901 Epilepsy, unspecified, not intractable, with status epilepticus (principal); R50.9 Fever, unspecified
CPT/HCPCS: 36415; 51701; 71045; 80053; 81001; 83605; 83690; 85025; 87040; 87086; 93005; 96365; 96367; 96375; J0692; J1953; J2060; J2405; J3370-JW; J3490